=== PATIENT | male | born 1950 | race Caucasian/White ===

== ENCOUNTER 2018-12-25 23:31 | Emergency (ER) | payer MEDICARE ==
--- NOTE | 2018-12-25 23:50 | EDM.PDOC ---
ED HPI GENERAL MEDICAL PROBLEM - General Chief Complaint: Neuro Symptoms/Deficits Stated Complaint: AMBULANCE Time Seen by Provider: 12/25/18 23:46 Source of Information: Reports: Patient, EMS History Limitations: Reports: No Limitations - History of Present Illness INITIAL COMMENTS - FREE TEXT/NARRATIVE: EMS state family called pt with left side not moving, states was getting out of the shower and left leg gave away, denies hitting head. pt states unable move left side. speech slurred but comprehensible. family states last well was about 9:30 tonight. ED ROS GENERAL - Review of Systems Review Of Systems: ROS reveals no pertinent complaints other than HPI. ED EXAM, NEURO - Physical Exam Exam: See Below Exam Limited By: No Limitations General Appearance: Alert, WD/WN, Mild Distress, Other (upset) Eye Exam: Bilateral Eye: PERRL (pupils ER @ 4mm) Ears: Hearing Grossly Normal Throat/Mouth: Normal Voice, No Airway Compromise Head Exam: Atraumatic Neck: Non-Tender, Full Range of Motion Respiratory/Chest: No Respiratory Distress, No Accessory Muscle Use, Rhonchi. No: Decreased Breath Sounds Cardiovascular: Regular Rate, Rhythm GI/Abdominal: Soft, Non-Tender Neurological: Alert, Normal Mood/Affect, Other (left hemiparalysis) Psychiatric: Normal Affect, Normal Mood Skin Exam: Warm, Dry, Normal Color Course - Vital Signs Last Recorded V/S: Last Vital Signs Temp 36.6 C 12/25/18 23:53 Pulse 85 12/25/18 23:53 Resp 19 12/25/18 23:53 BP 134/71 12/25/18 23:53 Pulse Ox 100 12/25/18 23:53 - Orders/Labs/Meds Orders: Active Orders 24 hr Category Date Time Status EKG 12 Lead [EKG Documentation Completion] [RC] STAT Care 12/25/18 23:51 Active CBC WITH AUTO DIFF [HEME] Stat Lab 12/25/18 23:50 Ordered COMPREHENSIVE METABOLIC PN,CMP [CHEM] Stat Lab 12/25/18 23:50 Ordered ETOH [ETHANOL BLOOD MEDICAL] [CHEM] Stat Lab 12/26/18 00:05 Ordered INR,PT,PROTHROMBIN TIME [COAG] Stat Lab 12/25/18 23:50 Ordered PTT,PARTIAL THROMBOPLSTIN TIME [COAG] Stat Lab 12/25/18 23:50 Ordered TROPONIN I [CHEM] Stat Lab 12/25/18 23:50 Ordered - Re-Assessments/Exams Free Text/Narrative Re-Assessment/Exam: 12/26/18 00:[address] Cooley Neuro @ who kindly accepted pt to ER Dr De Jesus notified. Departure - Departure Time of Disposition: 00:15 Disposition: DC/Tfer to Acute Hospital 02 Condition: Fair Clinical Impression: Hemorrhagic stroke - Discharge Information Forms: Interfacility Transfer EMTALA - My Orders Last 24 Hours: My Active Orders 12/25/18 23:50 CBC WITH AUTO DIFF [HEME] Stat COMPREHENSIVE METABOLIC PN,CMP [CHEM] Stat INR,PT,PROTHROMBIN TIME [COAG] Stat PTT,PARTIAL THROMBOPLSTIN TIME [COAG] Stat TROPONIN I [CHEM] Stat 12/25/18 23:51 EKG 12 Lead [EKG Documentation Completion] [RC] STAT 12/26/18 00:05 ETOH [ETHANOL BLOOD MEDICAL] [CHEM] Stat - Assessment/Plan Last 24 Hours: My Active Orders 12/25/18 23:50 CBC WITH AUTO DIFF [HEME] Stat COMPREHENSIVE METABOLIC PN,CMP [CHEM] Stat INR,PT,PROTHROMBIN TIME [COAG] Stat PTT,PARTIAL THROMBOPLSTIN TIME [COAG] Stat TROPONIN I [CHEM] Stat 12/25/18 23:51 EKG 12 Lead [EKG Documentation Completion] [RC] STAT 12/26/18 00:05 ETOH [ETHANOL BLOOD MEDICAL] [CHEM] Stat
[2018-12-26] MEDS ORDERED: Diltiazem 25 MG/5 ML SDV IVPUSH ONE (00:24)
[2018-12-26 00:25] LABS: ANION GAP 18.8; CHLORIDE,CL 103 mmol/L (101-111); SODIUM,NA 139 mmol/L (135-145)
[2018-12-26] MEDS ORDERED: cloNIDine 0.1 MG Tab PO ONE (00:31)
== END 2018-12-26 01:05 ==
LOC: DL.ED 23:31
DX: I62.9 Nontraumatic intracranial hemorrhage, unspecified (principal)
CPT/HCPCS: 36415; 70450; 71045; 80053; 82962; 84484; 85025; 85610; 85730; 93005; 99285; A9270; G0480

== ENCOUNTER 2021-04-08 16:35 | Emergency (ER) | payer MEDICARE, OTHER, SELFPAY ==
[2021-04-08] MEDS ORDERED: Diphtheria,Pertussis(Acell),Tetanus Vaccine 0.5 ML Syringe IM ONE (17:00)
[2021-04-08] MEDS ORDERED: Lidocaine 1% 30 ML SDV INJECT ONE (17:00)
[2021-04-08 17:34] LABS: ANION GAP 14.6 mEq/L (7-13); CHLORIDE,CL 105 mmol/L (98-107); SODIUM,NA 141 mmol/L (136-145)
[2021-04-08 17:37] LABS: PTT,PARTIAL THROMBOPLSTIN TIME 27.4 SEC (22.0-34.0)
[2021-04-08] MEDS ORDERED: Sodium Chloride 0.9% 10 ML Syringe FLUSH PRN (17:38)
== END 2021-04-08 19:02 ==
LOC: DL.ED 16:35
DX: S06.5X9A Traumatic subdural hemorrhage with loss of consciousness of unspecified duration, initial encounter (principal); S06.6X9A Traumatic subarachnoid hemorrhage with loss of consciousness of unspecified duration, initial encounter; J18.9 Pneumonia, unspecified organism; D69.6 Thrombocytopenia, unspecified; Z86.73 Personal history of transient ischemic attack (TIA), and cerebral infarction without residual deficits; Z79.899 Other long term (current) drug therapy; W01.0XXA Fall on same level from slipping, tripping and stumbling without subsequent striking against object, initial encounter; Y92.009 Unspecified place in unspecified non-institutional (private) residence as the place of occurrence of the external cause
CPT/HCPCS: 36415; 36430; 70450; 71045; 72125; 80053; 80307; 85025; 85610; 85730; 86900; 86901; 99285; P9017

== ENCOUNTER 2021-04-23 11:51 | Inpatient (IN) | payer MEDICARE, OTHER ==
[2021-04-23] MEDS ORDERED: Ondansetron 4 MG/2 ML SDV IVPUSH PRN (15:40)
[2021-04-23] MEDS ORDERED: diphenhydrAMINE 50 MG/ML SDV IVPUSH PRN (15:40)
[2021-04-23] MEDS: LORazepam 2 MG/ML SDV IVPUSH PRN ×4 (16:38→23:27)
[2021-04-23] MEDS: Morphine 2 MG/ML SYRINGE IVPUSH PRN ×3 (17:46→22:36)
[2021-04-23] MEDS ORDERED: Sodium Chloride 0.9% 10 ML Syringe FLUSH SCH (21:00)
[2021-04-23] MEDS: Acetaminophen 650 MG Supp RECTAL PRN (21:12)
[2021-04-23] MEDS: Sodium Chloride 0.9% 10 ML Syringe FLUSH SCH (22:42)
[2021-04-24] MEDS: Morphine 2 MG/ML SYRINGE IVPUSH PRN ×7 (00:34→15:17)
[2021-04-24] MEDS: LORazepam 2 MG/ML SDV IVPUSH PRN ×7 (01:36→16:31)
[2021-04-24] MEDS: Acetaminophen 650 MG Supp RECTAL PRN ×3 (02:37→13:05)
[2021-04-24] MEDS: Sodium Chloride 0.9% 10 ML Syringe FLUSH SCH (09:26)
[2021-04-26] MEDS ORDERED: Scopolamine 1.5 MG Transdermal Patch TRDERM PRN (11:00)
== END 2021-04-24 17:19 | disposition expired | DRG 951 ==
LOC: DL.MS 16:18
PROVIDERS: ADMIT Internal Medicine; ATTEND Internal Medicine
DX: Z51.5 Encounter for palliative care (principal); I69.354 Hemiplegia and hemiparesis following cerebral infarction affecting left non-dominant side; D69.3 Immune thrombocytopenic purpura; C83.00 Small cell B-cell lymphoma, unspecified site; G40.409 Other generalized epilepsy and epileptic syndromes, not intractable, without status epilepticus; T17.908A Unspecified foreign body in respiratory tract, part unspecified causing other injury, initial encounter; H54.7 Unspecified visual loss; I10 Essential (primary) hypertension; F32.A Depression, unspecified; M10.9 Gout, unspecified; R62.7 Adult failure to thrive; R50.9 Fever, unspecified; Z87.01 Personal history of pneumonia (recurrent); Z92.21 Personal history of antineoplastic chemotherapy; Z86.79 Personal history of other diseases of the circulatory system; Z86.16 Personal history of COVID-19; Z79.899 Other long term (current) drug therapy; Z72.89 Other problems related to lifestyle; Z68.21 Body mass index [BMI] 21.0-21.9, adult
CPT/HCPCS: A9270-GY; J2060; J2270